=== PATIENT | female | born 1990 | race Caucasian/White ===

== ENCOUNTER 2017-05-25 15:19 | Inpatient (IN) | payer OTHER ==
[~2017-05-25 15:19] MED LIST: IOPAMIDOL (ISOVUE 370) 100 ML BTL IV ONE
--- NOTE | 2017-05-25 15:34 | EDPHY ---
H & P Stated Complaint: KNOWN PERICARDIAL EFFUSION Time Seen by Provider: 05/25/17 15:34 - Personal History LMP (Females 10-55): Now Current Tetanus Diphtheria and Acellular Pertussis (TDAP): Unsure Tetanus Vaccine Date: <10YRS - Medical/Surgical History Other PMH: LUPUS, APPY - Social History Smoking Status: Never smoked Constitutional: Initial Vital Signs Temperature (C) 36.5 C 05/25/17 15:26 Heart Rate 113 H 05/25/17 15:26 Respiratory Rate 18 05/25/17 15:26 Blood Pressure 132/103 H 05/25/17 15:26 O2 Sat (%) 98 05/25/17 15:26 O2 Delivery Mode Room Air Allergies/Adverse Reactions: Sulfa (Sulfonamide Antibiotics) Allergy (Severe, Verified 08/18/11 17:06) Ronan North Syndrome Home Medications: Medication Instructions Recorded Hydroxychloroquine Sulfate mg PO BID 09/09/10 [Plaquenil] Mycophenolate Mofetil [Cellcept] mg PO BID 09/09/10 Prednisone [Sterapred Ds] 0.5 mg PO DAILY 09/09/10 ASPIRIN 05/25/17 Aleve 05/25/17 Medical Decision Making - Diagnostics Imaging Results: Imaging Impressions Chest/Thorax CTA 05/25/17 18:00 Impression: 1. No evidence of thrombopulmonary embolic disease. 2. Large pericardial effusion. Small left pleural effusion and atelectasis in the left lower lobe. Results called and discussed with Dr. Kayec Huizar on May 25, 2017 at 1420 hours. ED Course/Re-evaluation: CHIEF COMPLAINT: Pericardial effusion, dyspnea, chest pain HISTORY OF PRESENT ILLNESS: The patient is a 27 y/o female with a history of lupus who arrives at the referral of cardiology due to shortness of breath and chest pain secondary to large pericardial effusion seen on CT today. She's had an ongoing lupus flare over the last 3-4 months, but over the past few weeks she noticed gradually increasing fatigue, shortness of breath with mild exertion , and pleuritic chest pain. She was evaluated by her shuttle car operator, Dr. Roa, today and had a chest CT performed that revealed a large pericardial effusion. Dr. Roa has reassessed her in the ED after echocardiogram and is taking her directly to the general production laborer to treat pericardial tamponade. REVIEW OF SYSTEMS: A 10 point review of systems was performed and is negative with the exception of the elements mentioned in the history of present illness. PHYSICAL EXAM: HR, BP, O2 Sat, RR. Temp noted General Appearance: Alert, well hydrated, appropriate, and non-toxic appearing. Head: Atraumatic without scalp tenderness or obvious injury Eyes: Pupils equal, round, reactive to light and accommodation, EOMI, no trauma , no injection. Nose: Atraumatic, no rhinorrhea, clear. Throat: Mucus membranes moist. Neck: Supple, nontender, no lymphadenopathy. Respiratory: No retractions, no distress, no wheezes, and no accessory muscle use. Lungs are clear to auscultation bilaterally. Cardiovascular: Regular rate and rhythm. Good capillary refill all extremities. Gastrointestinal: Abdomen is soft, nontender, non-distended, no masses, no rebound, no guarding, no peritoneal signs. Musculoskeletal: Normal active ROM of all extremities, atraumatic. Neurological: Alert, appropriate, and interactive. The patient has non-focal cranial nerves, motor, sensory, and cerebellar exam. Skin: No rashes, good turgor, no nodules on palpation. Past medical history: Lupus Past surgical history: noncontributory Family history: noncontributory Social history: Lives in [place]. Engaged. Nonsmoker. DIAGNOSTICS/PROCEDURES/CRITICAL CARE TIME: Reviewed CT chest from earlier today. Echocardiogram reveals pericardial tamponade per Dr. Roa. DIFFERENTIAL DIAGNOSIS: The differential diagnosis for the patient's chest pain included but was not limited to myocardial ischemia, pulmonary embolus, chest wall pain, pleural inflammation, and pulmonary infectious causes. MEDICAL DECISION MAKING: This is a well-appearing 27 y/o female with a history of lupus who presents with a several-week history of gradually worsening dyspnea, fatigue, and chest pain. Chest CT shows very large pericardial effusion. Dr. Roa assessed patient in the ED during echocardiogram and saw pericardial tamponade, so he is taking her to the cath suite right now for treatment. - Data Points Laboratory Results: Laboratory Results 05/25/17 15:39 05/25/17 15:39 05/25/17 05/25/17 05/25/17 16:45 15:39 15:39 WBC RBC Hgb Hct MCV MCH MCHC RDW Plt Count PT 14.2 SEC SEC (12.0-15.0) INR 1.08 (0.83-1.16) APTT 37.7 SEC SEC (23.0-38.0) Sodium 139 mEq/L mEq/L (134-144) Potassium 4.0 mEq/L mEq/L (3.5-5.2) Chloride 108 mEq/L mEq/L (97-110) Carbon Dioxide 21 mEq/l L mEq/l (22-31) Anion Gap 10 mEq/L mEq/L (8-16) BUN 18 mg/dL mg/dL (7-23) Creatinine 0.8 mg/dL mg/dL (0.6-1.0) POC Creatinine Estimated GFR > 60 Glucose 80 mg/dL mg/dL (70-100) Calcium 8.5 mg/dL mg/dL (8.5-10.4) Total Protein Pending Beta HCG, Qual 05/25/17 05/25/17 05/25/17 15:39 15:39 13:24 WBC 5.54 10^3/uL 10^3/uL (3.80-9.50) RBC 4.59 10^6/uL 10^6/uL (4.18-5.33) Hgb 13.6 g/dL g/dL (12.6-16.3) Hct 40.6 % % (38.0-47.0) MCV 88.5 fL fL (81.5-99.8) MCH 29.6 pg pg (27.9-34.1) MCHC 33.5 g/dL g/dL (32.4-36.7) RDW 15.1 % % (11.5-15.2) Plt Count 285 10^3/uL 10^3/uL (150-400) PT INR APTT Sodium Potassium Chloride Carbon Dioxide Anion Gap BUN Creatinine POC Creatinine 0.9 mg/dL mg/dL (0.6-1.0) Estimated GFR Glucose Calcium Total Protein Beta HCG, Qual NEGATIVE Point of Care Test Results: 05/25/17 13:24 POC Creatinine 0.9 Departure - Departure Disposition: [facility] Inpatient Acute Clinical Impression: Pericardial effusion with cardiac tamponade Condition: Fair Referrals: Terrie Izaguirre PA [Primary Care Provider] - As per Instructions Report Scribed for: Kobi Roca Report Scribed by: Sheron Solares Date of Report: 05/25/17 Time of Report: 16:11
[2017-05-25] MEDS ORDERED: LIDOCAINE 1% 300 MG/30 ML SDV ONE (16:09)
[2017-05-25] MEDS ORDERED: MIDAZOLAM 2 MG/2 ML VIAL ONE ×2 (16:10→17:21)
[2017-05-25] MEDS ORDERED: fentaNYL 100 MCG/2 ML INJ ONE (16:10)
[2017-05-25] MEDS ORDERED: IOPAMIDOL (ISOVUE-370) 150 ML BTL IV ONE (16:10)
[2017-05-25 16:53] LABS: ANION GAP 10 mEq/L (8-16); CALCIUM 8.5 mg/dL (8.5-10.4); CARBON DIOXIDE 21 mEq/l (22-31); CHLORIDE 108 mEq/L (97-110); CREATININE 0.8 mg/dL (0.6-1.0); GLOMERULAR FILTRATION RATE > 60; GLUCOSE 80 mg/dL (70-100); SODIUM 139 mEq/L (134-144)
--- NOTE | 2017-05-25 16:56 | CPEKG ---
Heart Rate: 99 RR Interval: 606 P-R Interval: 172 QRSD Interval: 78 QT Interval: 344 QTC Interval: 442 P [place]: 29 QRS [place]: 33 T Wave [place]: 1 EKG Severity - ABNORMAL ECG - EKG Impression: SINUS RHYTHM EKG Impression: ABNORMAL Q SUGGESTS ANTERIOR INFARCT EKG Impression: BORDERLINE T ABNORMALITIES, INFERIOR LEADS EKG Impression: COMPARED WITH 02/18/2010, INFERIOR T ABNORMALITIES NOW PRESENT, Q-WAVES SEEN IN EKG Impression: V2. CONSIDER PREVIOUS ANTERIOR HI VERSUS LEAD PLACEMENT DIFFERENCE Electronically Signed By: Ines Lange 25-May-2017 19:05:41
[2017-05-25 17:01] LABS: HEMATOCRIT 40.6 % (38.0-47.0); HEMOGLOBIN 13.6 g/dL (12.6-16.3); MEAN CELL HEMOGLOBIN 29.6 pg (27.9-34.1); MEAN CELL HEMOGLOBIN CONCENTR. 33.5 g/dL (32.4-36.7); MEAN CELL VOLUME 88.5 fL (81.5-99.8); RED BLOOD CELL COUNT 4.59 10^6/uL (4.18-5.33); RED CELL DISTRIBUTION WIDTH 15.1 % (11.5-15.2)
[2017-05-25 17:08] LABS: APTT 37.7 SEC (23.0-38.0); INR 1.08 (0.83-1.16); PROTIME(PATIENT) 14.2 SEC (12.0-15.0)
[2017-05-25] MEDS ORDERED: ACETAMINOPHEN 325 MG TAB PO PRN (18:07)
[2017-05-25 18:14] LABS: TOTAL PROTEIN 5.3 g/dL (6.3-8.2)
--- NOTE | 2017-05-25 19:02 | ECHO ---
[email or web address] [address] [address] Main: [phone] Fax: Transthoracic Echocardiogram Name: LUZ LAWLER MR#: [id number] Study Date: 05/25/2017 Study Time: 03:52 PM Date of : 1990 Age: 27 year(s) Height: 172.7 cm (68 in.) Weight: 72.58 kg (160 lb.) BSA: 1.86 m2 Gender: Female Examination: Echo Indication: Eval pericardial effusion Image Quality: Contrast: Requested by: Physician Ed BP: / Heart Rate: Rhythm: Indication: Eval pericardial effusion Procedure Staff Developer Designer: Pearl Alva Physician: Macho Roa Requesting Provider: Conclusions: Low normal left ventricular systolic function. Large pericardial effusion. Evidence suggestive of hemodynamic compromise. Left side pleural effusion. Measurements: Chambers Valvular Assessment AV/MV Valvular Assessment TV/PV Normal Normal Normal Name Value Range Name Value Range Name Value Range Ao Maria C (MM): 3.4 cm (2.2 cm-3.7 TR Vmax: 2.20 mm/s ( - ) cm) TR PGmax: 19 mmHg ( - ) IVSd (2D): 1.1 cm (0.6 cm-1.1 syst. PAP: 24 mmHg ( - ) cm) LVDd (2D): 4.4 cm (3.9 cm-5.3 cm) LVDs (2D): 3.4 cm (2.1 cm-4 cm) LVPWd (2D): 1.1 cm ( - ) LVEF (2D): 47 (>=54 %) Continued Measurements: Chambers Valvular Assessment TV/PV Name Value Name Value LADs: 3.4 cm CVP (est.): 5 mmHg Findings: Left Ventricle: Low normal left ventricular systolic function. EF is 47 %. Patient: LUZ LAWLER Study Date: 05/25/2017 Page 1 of 2 03:52 PM Mitral Valve: The mitral valve is normal in appearance. Trivial mitral valve regurgitation. Aortic Valve: The aortic valve is normal in appearance. Tricuspid Valve: Trivial tricuspid valve regurgitation. The pulmonary artery pressure is normal. Pulmonic Valve: The pulmonic valve is normal in appearance and function. Aorta: Normal size ascending aorta. Pericardium: Large pericardial effusion. Evidence suggestive of hemodynamic compromise. Left side pleural effusion. (No Signature Object) Patient: LUZ LAWLER Study Date: 05/25/2017 Page 2 of 2 03:52 PM [id number]
--- NOTE | 2017-05-25 19:08 | ECHO ---
[email or web address] [address] [address] Main: [phone] Fax: Transthoracic Echocardiogram Name: LUZ LAWLER MR#: [id number] Study Date: 05/25/2017 Study Time: 04:44 PM Date of : 1990 Age: 27 year(s) Height: ( ) Weight: ( ) BSA: Gender: Female Examination: Limited Echo Indication: Tamponade Image Quality: Contrast: Requested by: Kobi Roca BP: / Heart Rate: Rhythm: Tachycardia Indication: Tamponade Procedure Staff Stock Taker: Ivan Alva Physician: Macho Roa Requesting Provider: Conclusions: Large pericardial effusion. Evidence suggestive of hemodynamic compromise. trace residual pericardial effusion post pericardiocentesis. . This is a limited echo during a pericardiocentisis. 700cc of pericardial fluid was removed during the procedure.. Measurements: Chambers Valvular Assessment AV/MV Valvular Assessment TV/PV Normal Normal Normal Name Value Range Name Value Range Name Value Range Continued Measurements: Findings: Left Ventricle: Normal global systolic LV function. Pericardium: Large pericardial effusion. Evidence suggestive of hemodynamic compromise. trace residual pericardial effusion post pericardiocentesis. . Exam Comments: This is a limited echo during a pericardiocentisis. 700cc of pericardial fluid was removed during the procedure.. (No Signature Object) Patient: LUZ LAWLER Study Date: 05/25/2017 Page 1 of 1 04:44 PM [id number]
[2017-05-25] MEDS ORDERED: NAPROXEN SODIUM 220 MG TAB PO PRN (20:39)
[2017-05-25] MEDS ORDERED: KETOROLAC 15 MG/1 ML SDV IVP ONE (22:00)
[2017-05-25] MEDS ORDERED: oxyCODONE IR 5 MG TAB PO PRN (22:01)
[2017-05-25] MEDS: PANTOPRAZOLE SODIUM 40 MG TAB PO SCH (22:12)
[2017-05-25] MEDS: MYCOPHENOLATE MOFETIL 1000 MG PO SCH (22:12)
[2017-05-25] MEDS: HYDROXYCHLOROQUINE SULFATE 200 MG PO SCH (22:13)
--- NOTE | 2017-05-25 22:38 | GCON ---
[f rep st] CONSULTATION CARDIOLOGY PROCEDURE NOTE. DATE OF CONSULTATION: 05/25/2017 PROCEDURE PERFORMED: Pericardiocentesis. INDICATION FOR PROCEDURE: Pericardial tamponade. BRIEF HISTORY: The patient is a pleasant 27-year-old female with a known history of lupus initially diagnosed at the age of 18 who was experiencing a recent lupus flare and has recently spent 10 days t raveling in [place] for work. She presented to her furnace caretaker, Dr. Kayce Huizar at the [facility] with complaints of increasing shortness of breath, dyspnea, and tachycardia. CTA of the chest was ordered which was negative for pulmonary emboli, but demonstrated a large circumferential pericardial effusion. She was presented to [facility] and found to have a large circumferential, approximately 3 cm, pericardial effusion and evidence of pericardia l tamponade. The patient was brought to the cardiac catheterization lab for urgent pericardiocentesis. Prior to onset of procedure patient was consented for pericardiocentesis. PROCEDURE: After appropriate level of sedation was achieved, the patient was prepped and draped in a sterile fashion. The patient initially underwent local anesthesia with lidocaine. A Cook needle wa s then used to advance underneath the costophrenic margin and into the pericardial space. Clear stra w-like fluid was returned in the syringe. Agitated saline under direct echocardiography demonstrated appropriate placement within the pericardium. At that point, dilator was advanced and then exchange d for pericardial catheter over wire. At that point, approximately 750 cc of straw-like clear fluid were removed from the pericardium without complication. Drain was secured in place with continuous s uction to RADHA drain. She tolerated the procedure well. There were no postoperative complications. PLAN: 1. The patient will be transferred to the ICU. 2. Pericardial drain will remain in place. 3. Plan for repeat echocardiogram in the morning. 4. Will increase dose of prednisone to 40 mg once daily. 5. Will remain on all of her outpatient lupus medications. I had discussed the case with Dr. Huizar who recommended that she remain on her medications with the addition of increasing prednisone dosing. /[id number]/MODL
--- NOTE | 2017-05-25 22:44 | GHP ---
[f rep st] HISTORY AND PHYSIC DATE OF ADMISSION: 05/25/2017 INDICATION FOR ADMISSION: Increasing complaints of shortness of breath and dyspnea on exertion, found to be in pericardial tamponade with large circumferential pericardial effusion in the setting of a known history of lupus. HISTORY OF PRESENT ILLNESS: The patient is a pleasant 27-year-old female with a past medical history of lupus diagnosed at the age of 18, who is managed primarily by Dr. Dwain Marroquin at [facility], who was in her usual state of health until the past several weeks when she has had symptoms consistent with a lupus flare. She recently was on a 10-day trip to [facility] where she began to feel increasing shortness of breath, fatigue, and dyspnea on exertion. She was seen by Dr. Kayce Huizar at the [facility] with complaints of increasing shortness of breath and chest discomfort. She was sent for a CTA of the pulmonary arteries with concern for possible pulmonary embolus in the setting of an antiphospholipid antibody syndrome and long international travel. CTA was negative for pulmonary emboli but did note a large pericardial effusion. At that point, the patient was asked to present to [facility] emergency department for further evaluation. I met her in the emergency room, and a stat echo had been ordered even prior to her arrival. Stat echocardiogram demonstrated an approximately 3 cm circumferential pericardial effusion with evidence of pericardial tamponade. The patient was brought urgently to the cardiac catheterization lab and underwent pericardiocentesis for 750 cc approximately of straw-colored fluid. She tolerated the procedure well. There were no postoperative complications. Drain was sutured in place with continuous RADHA drain. Currently, at the time of this dictation, she is being transferred to the ICU, where she is hemodynamically stable. PAST MEDICAL HISTORY: 1. Lupus. 2. History of antiphospholipid antibody syndrome and no prior history of DVT. 3. History of migraines and history of migraines with aura. MEDICATIONS ON ADMISSION: 1. Aleve 220 mg every 3rd day. 2. Hydroxychloroquine 200-mg tablets 1 tablet p.o. b.i.d. 3. Mycophenolate mofetil 500-mg tablets 2 tablets b.i.d. 4. Prednisone 10 mg daily. 5. Cyclobenzaprine 5 mg 1 tablet p.o. 3 times a day as needed. 6. Xanax 0.25 mg 1 tablet by oral route q.12 hours p.r.n. severe anxiety. ALLERGIES: Of note, she has a severe allergy to sulfa, Kong-North syndrome. SOCIAL HISTORY: She is single. She is engaged to be . She is originally from [place]. She is a nonsmoker. She does not drink significant quantities of alcohol. FAMILY HISTORY: Family history of lupus. No family history of coronary artery disease. EXAM: On initial presentation to the ER, blood pressure was 132/103, and she was tachycardic at 113 beats per minute, 98% on room air, temperature 36.5. She is awake, alert, oriented, appropriate, in no apparent distress. LUNGS: Clear to auscultation bilaterally. CARDIAC: S1, S2. Tachycardic, regular. There is no evidence of JVP or carotid bruits. ABDOMEN: Soft, nontender, nondistended. There is no pulsatile mass or abdominal bruits. There is no evidence of cyanosis, clubbing or edema. DATA: ECG demonstrates sinus tachycardia at approximately 100 beats per minute , normal intervals, normal axis. LAB WORK: White blood cell count 5.54, hemoglobin of 13.6, hematocrit of 40.6, platelet count 285. INR 1.08. Sodium 139, potassium 4.0, chloride 108, bicarb 21, BUN 18, creatinine 0.8. Beta hCG negative. Total serum protein 5.3. Echocardiogram demonstrates normal left ventricular systolic function with large circumferential pericardial effusion of approximately 3 cm with evidence of pericardial tamponade. IMPRESSION: 1. Pericardial tamponade. 2. History of lupus. 3. History of antiphospholipid antibody syndrome. PLAN: 1. The patient has undergone pericardiocentesis for approximately 750 cc of straw-like, clear fluid. Cultures, cytologies, and protein are pending. 2. Pericardial drain in place with continuous drain to RADHA drain at this time. 3. Admit to ICU. 4. Increase prednisone to 40 mg daily. Have her remain on her other medications as prescribed by Dr. Huizar. 30 min spent coordinating care /[id number]/MODL MTDD
[2017-05-25] MEDS: TURMERIC COMPLEX 500 MG PO SCH (23:10)
[2017-05-26 05:42] LABS: % IMMATURE GRANULYOCYTES 0.2 % (0.0-1.1); ABSOLUTE IMMATURE GRANULOCYTES 0.02 10^3/uL (0.00-0.10); ADD DIFF? NO; ADD MORPH? NO; ADD SCAN? NO; ATYPICAL LYMPHOCYTE FLAG 30 (0-99); FRAGMENT RBC FLAG 0 (0-99); HEMATOCRIT 39.5 % (38.0-47.0); HEMOGLOBIN 13.3 g/dL (12.6-16.3); LEFT SHIFT FLG 30 (0-99); LIPEMIA HEMOLYSIS FLAG 80 (0-99); MEAN CELL HEMOGLOBIN 29.7 pg (27.9-34.1); MEAN CELL HEMOGLOBIN CONCENTR. 33.7 g/dL (32.4-36.7); MEAN CELL VOLUME 88.2 fL (81.5-99.8); PLATELET CLUMPS FLAG 10 (0-99); PLATELET COUNT 274 10^3/uL (150-400); RED BLOOD CELL COUNT 4.48 10^6/uL (4.18-5.33); RED CELL DISTRIBUTION WIDTH 14.9 % (11.5-15.2)
[2017-05-26 05:50] LABS: ANION GAP 8 mEq/L (8-16); CALCIUM 8.1 mg/dL (8.5-10.4); CARBON DIOXIDE 21 mEq/l (22-31); CHLORIDE 107 mEq/L (97-110); CREATININE 0.9 mg/dL (0.6-1.0); GLOMERULAR FILTRATION RATE > 60; GLUCOSE 92 mg/dL (70-100); POTASSIUM 4.5 mEq/L (3.5-5.2); SODIUM 136 mEq/L (134-144)
[2017-05-26] MEDS ORDERED: IBUPROFEN 200 MG TAB PO ONE (08:43)
[2017-05-26] MEDS: HYDROXYCHLOROQUINE SULFATE 200 MG PO SCH ×2 (08:55→19:36)
[2017-05-26] MEDS: IBUPROFEN 200 MG TAB PO PRN ×3 (08:59→21:36)
[2017-05-26] MEDS: MYCOPHENOLATE MOFETIL 1000 MG PO SCH ×2 (08:59→19:34)
[2017-05-26] MEDS ORDERED: PREDNISONE 15 MG PO SCH (09:00)
[2017-05-26] MEDS: TURMERIC COMPLEX 500 MG PO SCH ×2 (09:01→19:35)
[2017-05-26] MEDS: PANTOPRAZOLE SODIUM 40 MG TAB PO SCH (09:02)
[2017-05-26] MEDS: predniSONE 20 MG TAB PO SCH (10:38)
--- NOTE | 2017-05-26 11:16 | ASMTCASEMG ---
Living Arrangements What is your living Answers: Alone arrangement? Who do you live with? Type Of Residence What kind of residence do Answers: House you live in? Discharge Plan Comments Coordination Status Comments Notes: Patient is a 27yo single female who was admitted for pericardial tamponade and was emergently taken to the cardiac catheterization lab for pericardicentesis. Patient tolerated the procedure well. No therapies have been ordered. Patient will likely d/c independently. She is engaged to be and has her own home in [place]. CM available if d/c needs arise. Date Signed: 05/26/2017 11:15 AM Electronically Signed By:Lizbet Storm LCSW
--- NOTE | 2017-05-26 14:11 | GCON ---
[f rep st] CONSULTATION TITLE COORDINATOR CONSULTATION REASON FOR ADMISSION: Lupus, pericardial tamponade. HISTORY OF PRESENT ILLNESS: The patient is an extremely pleasant 27-year-old, white female with a [facility] medical history of lupus. This was diagnosed at age 18. She also has a history of antiphospholip id antibody and migraines. She presented to the emergency room with complaints of increasing breathl essness. She has recently had her 1st flare of lupus after approximately 9 years. She has been foll owed by Dr. Dwain Marroquin at [facility]. She apparently was on a recent 10-day trip to [facility]. She began having increasing breathlessness and dyspnea upon exertion. Upon retur n, she was seen by her primary care physician, sent for CT angiogram of the chest which revealed no e vidence of pulmonary embolism, but did notice a large pericardial effusion. She was brought to the e mergency room. Stat echo was performed and she was taken urgently to the cardiac catheterization lab for pericardiocentesis. Currently, patient states she feels markedly improved. She does complain o f a headache and some chest pain where the drain site is, but she denies any shortness of breath, cou gh, or production of sputum. She is currently resting comfortably. PAST MEDICAL HISTORY: Significant for lupus, antiphospholipid antibody with no prior history of DVT, and history of migraines. ALLERGIES: No known allergies to medications. SOCIAL HISTORY: No history of tobacco use. Infrequent alcohol use. She is engaged. She has lived in [place] for 9 years, is originally from [place]. FAMILY HISTORY: Significant for lupus. REVIEW OF SYSTEMS: A 10-point review of systems was performed which was negative except for those li sted in the HPI. PHYSICAL EXAM: VITAL SIGNS: Blood pressure is 104/54, pulse 108, respirations 26, temperature is 38 .0, oxygen saturation 92% on room air. GENERAL: She is a well-developed, well-nourished, 27-year-ol d, white female who is resting comfortably in no acute distress. HEENT: Eyes: WALLACE, EOMI. Throat shows no erythema or tonsillar hypertrophy. NECK: Supple. No cervical adenopathy. HEART: Sounds are distant, but regular rate and rhythm. LUNGS: Diminished breath sounds but no wheeze. ABDOMEN: Soft, nontender. Bowel sounds present in all 4 quadrants. EXTREMITIES: No clubbing, cyanosis, or edema. LABORATORIES: White count is 8.7, hemoglobin 13, hematocrit 39, platelet count 274. Sodium 136, pot assium 4.5, chloride 107, CO2 21, BUN 22, creatinine 0.9, glucose is 92, pericardial effusion. White count of 105, RBCs 126. Glucose 85, protein 4.2. Cytology is currently pending. Chest x-ray shows a hint of a left lower lobe infiltrate. CT angiogram of the chest shows atelectasis in the left lower lobe and a large pericardial effusion. IMPRESSION: 1. Lupus with flare. 2. Large pericardial effusion with tamponade secondary to lupus. 3. Respiratory, currently stable. 4. Status post pericardial drain. 5. History of antiphospholipid antibody syndrome. 6. Migraines. RECOMMENDATIONS: 1. Adequate pain control. 2. DVT and PE prophylaxis. 3. Stress ulcer prophylaxis. 4. Continue current home medications. 5. Close cardiovascular monitoring. 6. Follow pericardial output closely. /[id number]/MODL
--- NOTE | 2017-05-26 17:39 | ECHO ---
[email or web address] [address] [address] Main: [phone] Fax: Transthoracic Echocardiogram Name: LUZ LAWLER MR#: [id number] Study Date: 05/26/2017 Study Time: 03:53 PM Date of : 1990 Age: 27 year(s) Height: ( ) Weight: ( ) BSA: Gender: Female Examination: Limited Echo Indication: Eval pericardial effusion post drain removal Image Quality: Contrast: Requested by: Macho Roa BP: 102 mmHg/56 mmHg Heart Rate: Rhythm: Indication: Eval pericardial effusion post drain removal Procedure Staff Master Ship: Pearl Alva Physician: Macho Roa Requesting Provider: Conclusions: Normal global systolic LV function. Normal RV function. Small to moderate pericardial effusion. No echocardiographic evidence of hemodynamic compromise. Left side pleural effusion. Measurements: Chambers Valvular Assessment AV/MV Valvular Assessment TV/PV Normal Normal Normal Name Value Range Name Value Range Name Value Range Continued Measurements: Findings: Left Ventricle: Normal global systolic LV function. Right Ventricle: Normal RV function. Pericardium: Small to moderate pericardial effusion. No echocardiographic evidence of hemodynamic compromise. Left side pleural effusion. (No Signature Object) Patient: LUZ LAWLER Study Date: 05/26/2017 Page 1 of 1 03:53 PM [id number]
--- NOTE | 2017-05-26 17:41 | ECHO ---
[email or web address] [place] [id number] Main: [phone] Fax: Transthoracic Echocardiogram Name: LUZ LAWLER MR#: [id number] Study Date: 05/26/2017 Study Time: 10:24 AM Date of : 1990 Age: 27 year(s) Height: ( ) Weight: ( ) BSA: Gender: Female Examination: Limited Echo Indication: Eval pericardial effusion Image Quality: Contrast: Requested by: Macho Roa BP: / Heart Rate: Rhythm: Indication: Eval pericardial effusion Procedure Staff Tying Machine Operator: Pearl Alva Physician: Macho Roa Requesting Provider: Measurements: Chambers Valvular Assessment AV/MV Valvular Assessment TV/PV Normal Normal Normal Name Value Range Name Value Range Name Value Range Continued Measurements: Findings: Left Ventricle: Normal global systolic LV function. Right Ventricle: Normal RV function. Pericardium: Small to moderate pericardial effusion. No echocardiographic evidence of hemodynamic compromise. Left side pleural effusion. (No Signature Object) Patient: LUZ LAWLER Study Date: 05/26/2017 Page 1 of 1 10:24 AM [id number]
--- NOTE | 2017-05-26 19:10 | PDCARPN ---
Cardiology Progress Note Chief Complaint: sob Assessment/Plan: Assessment: 1. Pericardial effusion with tamponade. Sp pericardiocentesis for 750 cc 2. Left Pleural effusion 3. Lupus flare Plan: -reviewed medical therapy with her Rheumatolotist, Dr. Montez -Continue current medications -monitor overngiht -repeat echo in AM. If effusion increases, will consider pericardial window -CXR Pa and Lat to assess pleural effusion 05/26/17 19:08 Subjective: Yaima is feeling better today. Notices some resprophasic pain. Pericardial drain pulled at noon. Post echo demonstrates slight increase in effusion without tamponade. She does remain in Sinus Tach at 105-110. BP is stable. No new complaints. Reviewed/Discussed With: family, multidisciplinary team Objective: Vital Signs (8 Hrs) Temp Pulse Resp BP Pulse Ox 05/26/17 16:00 36.9 C 101 H 24 H 98/65 L 95 05/26/17 11:37 37.3 C 104 H 23 H 102/56 L Intake/Output (24 Hrs) 05/25/17 05/26/17 05/27/17 05:59 05:59 05:59 Intake Total 500 1000 Output Total 77 195 Balance 423 805 Intake: Oral (ml) 500 1000 Output: RADHA Drain Output (ml) 77 #1 Chest Jack Birch 77 Pericardial Drain Output 195 (ml) Chest 195 Other: Weight 72.575 kg 72.575 kg Number of Voids Toilet 1 2 Result Diagrams: 05/26/17 05:26 05/26/17 05:26 - Physical Exam Constitutional: WDWN Cardiovascular: regular rate and rhythm (tachy at 105) Respiratory: clear to auscultate bilat Musculoskeletal: no muscular tenderness Neurologic: AAOx3, CN II-XII grossly intact Psychiatric: cooperative ICD10 Worksheet Patient Problems: Problems Problem Status Onset Pericardial effusion with cardiac tamponade Acute
[2017-05-26] MEDS ORDERED: ALPRAZolam 0.25 MG TAB PO PRN (21:25)
[2017-05-27] MEDS: IBUPROFEN 200 MG TAB PO PRN (06:00)
[2017-05-27 06:45] LABS: % IMMATURE GRANULYOCYTES 0.7 % (0.0-1.1); ABSOLUTE IMMATURE GRANULOCYTES 0.07 10^3/uL (0.00-0.10); ADD DIFF? NO; ADD MORPH? NO; ADD SCAN? NO; ATYPICAL LYMPHOCYTE FLAG 0 (0-99); FRAGMENT RBC FLAG 20 (0-99); HEMATOCRIT 37.1 % (38.0-47.0); HEMOGLOBIN 12.4 g/dL (12.6-16.3); LEFT SHIFT FLG 10 (0-99); LIPEMIA HEMOLYSIS FLAG 80 (0-99); MEAN CELL HEMOGLOBIN 29.7 pg (27.9-34.1); MEAN CELL HEMOGLOBIN CONCENTR. 33.4 g/dL (32.4-36.7); MEAN CELL VOLUME 88.8 fL (81.5-99.8); MEAN PLATELET VOLUME 10.4 fL (8.7-11.7); PLATELET CLUMPS FLAG 0 (0-99); PLATELET COUNT 285 10^3/uL (150-400); RED BLOOD CELL COUNT 4.18 10^6/uL (4.18-5.33); RED CELL DISTRIBUTION WIDTH 15.1 % (11.5-15.2)
[2017-05-27 06:59] LABS: ANION GAP 10 mEq/L (8-16); CALCIUM 8.4 mg/dL (8.5-10.4); CARBON DIOXIDE 22 mEq/l (22-31); CHLORIDE 108 mEq/L (97-110); CREATININE 0.9 mg/dL (0.6-1.0); GLOMERULAR FILTRATION RATE > 60; GLUCOSE 94 mg/dL (70-100); POTASSIUM 4.1 mEq/L (3.5-5.2); SODIUM 140 mEq/L (134-144)
--- NOTE | 2017-05-27 10:40 | PDINTPN ---
[employer] Progress Note Assessment/Plan: Assessment: * Lupus * Pericardial effusion with tamponade. Drain pulled yesterday, however there is reaccumulation of fluid. Query pericardial window * Small pleural effusion * Pain-well tolerated Plan: Will discuss case with Dr. Roa Continue pain medications NPO for now Subjective: Resting comfortably. Pain is well tolerated. Denies any breathlessness. Currently NPO Objective: Vital Signs Temp Pulse Resp BP Pulse Ox 37.1 C 96 19 109/69 97 05/27/17 08:00 05/27/17 08:00 05/27/17 08:00 05/27/17 08:00 05/27/17 08:00 Laboratory Results 05/27/17 06:25 05/27/17 06:25 05/26/17 05/27/17 05/28/17 05:59 05:59 05:59 Intake Total 500 1750 Output Total 77 195 Balance 423 1555 PT 14.2 SEC (12.0-15.0) 05/25/17 15:39 INR 1.08 (0.83-1.16) 05/25/17 15:39 Chest [id number] by myself. Lungs are clear. There is left-sided pleural effusion. - Time Spent With Patient Time Spent With Patient: 25 min of time spent with patient, more than half spent with counseling or coordination of care Physical Exam - Physical Exam General Appearance: alert, no apparent distress EENT: PERRL/EOMI, normal ENT inspection, pharynx normal, TMs normal Neck: non-tender, full range of motion, supple, normal inspection Respiratory: crackles (Few left base), No respiratory distress, No accessory muscle use Cardiac/Chest: normal peripheral pulses, regular rate, rhythm Abdomen: normal bowel sounds, non-tender, soft Pelvic Exam: deferred Rectal: deferred Skin: normal color, warm/dry Extremities: normal range of motion Neuro/Psych: no motor/sensory deficits, alert, normal mood/affect, oriented x 3 ICD10 Worksheet Patient Problems: Problems Problem Status Onset Pericardial effusion with cardiac tamponade Acute
--- NOTE | 2017-05-27 12:12 | PDCARPN ---
Cardiology Progress Note Assessment/Plan: Assessment: 1. Pericardial effusion with tamponade. Sp pericardiocentesis for 750 cc 2. Left Pleural effusion 3. Lupus flare Plan: -reviewed medical therapy with her Rheumatolotist, Dr. Montez -Continue current medications -Give prednisone now -Keep NPO. -Request consultation with Dr. Garcia for pericardial window and drain of left pleural space -30 min spent with patient and coordinating care 05/27/17 12:11 Subjective: Dilip is feeling well this AM. No new complaints. She remains in NSR to sinus tach with HR range from 98-110 bpm. Note echo this am demontrates increasing pericaridal effusion and pleural effusion. Reviewed/Discussed With: family, multidisciplinary team Objective: Vital Signs (8 Hrs) Temp Pulse Resp BP Pulse Ox 05/27/17 11:48 36.9 C 106 H 25 H 116/76 98 05/27/17 08:00 37.1 C 96 19 109/69 97 05/27/17 07:41 37.2 C 96 24 H 109/69 94 05/27/17 06:00 36.9 C 93 21 H 115/67 96 Intake/Output (24 Hrs) 05/26/17 05/27/17 05/28/17 05:59 05:59 05:59 Intake Total 500 1750 Output Total 77 195 Balance 423 1555 Intake: Oral (ml) 500 1750 Output: RADHA Drain Output (ml) 77 #1 Chest Jack Birch 77 Pericardial Drain Output 195 (ml) Chest 195 Other: Weight 72.575 kg 72.575 kg Number of Voids Toilet 1 2 Number of Stools Toilet 0 Result Diagrams: 05/27/17 06:25 05/27/17 06:25 - Physical Exam Constitutional: no apparent distress Neurologic: AAOx3, CN II-XII grossly intact Psychiatric: cooperative, interactive ICD10 Worksheet Patient Problems: Problems Problem Status Onset Pericardial effusion with cardiac tamponade Acute
[2017-05-27] MEDS ORDERED: methylPREDNISolone SOD SUCC 40 MG/ML VIAL IVP ONE (12:30)
[2017-05-27] MEDS: HYDROXYCHLOROQUINE SULFATE 200 MG PO SCH ×2 (12:37→20:07)
[2017-05-27] MEDS: TURMERIC COMPLEX 500 MG PO SCH ×2 (12:37→20:06)
[2017-05-27] MEDS: MYCOPHENOLATE MOFETIL 1000 MG PO SCH ×2 (12:37→20:08)
[2017-05-27] MEDS: PANTOPRAZOLE SODIUM 40 MG TAB PO SCH (12:37)
[2017-05-27] MEDS: predniSONE 20 MG TAB PO SCH (12:38)
[2017-05-27] MEDS ORDERED: MIDAZOLAM 2 MG/2 ML VIAL IVP ONE (13:03)
--- NOTE | 2017-05-27 13:05 | PDANEPAE ---
ANE History of Present Illness L VATS for pericardial window ANE Past Medical History - Pulmonary History Hx Oxygen in Use at Home: No Hx Sleep Apnea: No Sleep Apnea Screening Result - Last Documented: Negative - Endocrine History Hx Diabetes: No Endocrine History Comment: SLE - Other Health History Other Health History: anti phospholipid antibody - Chronic Pain History Chronic Pain: Yes ANE Review of Systems Review of Systems: - Exercise capacity Exercise capacity: >=4 METS ANE Patient History - Allergies Allergies/Adverse Reactions: Sulfa (Sulfonamide Antibiotics) Allergy (Severe, Verified 08/18/11 17:06) Ronan [place] Syndrome - Home Medications Home medications: home medication list seen and reviewed Home Medications: Cyclobenzaprine [Flexeril 10 MG (*)] 10 mg PO Q8H PRN 05/25/17 [Last Taken Unknown] Hydroxychloroquine Sulfate [Plaquenil 200 mg (*)] 200 mg PO BID 05/25/17 [Last Taken 05/25/17 10:00] Mycophenolate Mofetil 1,000 mg PO BID 05/25/17 [Last Taken 05/25/17 10:00] Naproxen Sodium [Aleve 220 MG (*)] 220 mg PO BID 05/25/17 [Last Taken 05/25/17 10:00] predniSONE 15 mg PO AD 05/25/17 [Last Taken 05/24/17] - NPO status NPO Since - Liquids (Date): 04/26/17 NPO Since - Liquids (Time): 00:00 NPO Since - Solids (Date): 05/26/17 NPO Since - Solids (Time): 00:00 - Smoking Hx Smoking Status: Never smoked ANE Labs/Vital Signs - Labs Result Diagrams: 05/27/17 06:25 05/27/17 06:25 - Vital Signs Blood Pressure: 116/76 Heart Rate: 109 Respiratory Rate: 22 O2 Sat (%): 94 Height: 172.72 cm Weight: 72.575 kg ANE Physical Exam - Airway Mallampati Score: Class 1 Mouth exam: small mouth opening (small chin) - Pulmonary Pulmonary: no respiratory distress - Cardiovascular Cardiovascular: regular rate and rhythym - ASA Status ASA Status: II ANE Anesthesia Plan Anesthesia Plan: general endotracheal anesthesia Specialized Airway: double lumen tube
[2017-05-27] MEDS ORDERED: REMIFENTANIL HCL 1 MG VIAL ONE (13:15)
[2017-05-27] MEDS ORDERED: fentaNYL 100 MCG/2 ML INJ ONE ×3 (13:16→15:32)
[2017-05-27] MEDS ORDERED: ceFAZolin 2 GM/SWFI 20 ML SYR IVP ONE (13:16)
[2017-05-27] MEDS ORDERED: PROPOFOL/EMULSION 500 MG/50 ML BOTTLE IV ONE ×2 (13:16→14:24)
[2017-05-27] MEDS ORDERED: DEXAMETHASONE 4 MG/ML VIAL ONE (13:17)
[2017-05-27] MEDS ORDERED: ONDANSETRON 4 MG/2 ML VIAL ONE (13:17)
[2017-05-27] MEDS ORDERED: LIDOCAINE 2% 100 MG/5 ML SYR ONE (13:18)
[2017-05-27] MEDS ORDERED: LIDOCAINE 2% JELLY 5 ML TUBE ONE (13:18)
[2017-05-27] MEDS ORDERED: ceFAZolin 2 GM/DEXTROSE 100 ML IV ONE (13:30)
[2017-05-27] MEDS ORDERED: PHENYLEPHRINE HCL 100 MCG/ML SYR ONE ×3 (13:41→14:05)
[2017-05-27] MEDS ORDERED: BUPIVACAINE 0.25% 30 ML SDV ONE (13:53)
[2017-05-27] MEDS ORDERED: VASOPRESSIN 20 UNIT/ML VIAL ONE (14:22)
[2017-05-27] MEDS ORDERED: KETOROLAC 30 MG/1 ML SDV ONE (14:36)
[2017-05-27] MEDS ORDERED: ALBUTEROL 3 ML DEYVIAL IH PRN (15:07)
[2017-05-27] MEDS ORDERED: LABETALOL HCL 5 MG/ML 20 ML MDV IVP PRN (15:07)
[2017-05-27] MEDS ORDERED: PROMETHAZINE HCL 25 MG/ML INJ IVP PRN ×2 (15:07→17:08)
[2017-05-27] MEDS ORDERED: MEPERIDINE 25 MG/ML SYR IVP PRN (15:07)
[2017-05-27] MEDS ORDERED: DEXAMETHASONE 4 MG/ML VIAL IVP PRN (15:07)
[2017-05-27] MEDS ORDERED: METOCLOPRAMIDE 10 MG/2 ML VIAL IVP PRN (15:07)
[2017-05-27] MEDS ORDERED: HYDROCODONE/APAP 5/325 TAB PO PRN (15:07)
[2017-05-27] MEDS ORDERED: ONDANSETRON 4 MG/2 ML VIAL IVP PRN (15:07)
[2017-05-27] MEDS ORDERED: NALOXONE HCL 0.4 MG/ML INJ IVP PRN (15:07)
[2017-05-27] MEDS ORDERED: LR 500 ML IV PRN (15:07)
[2017-05-27] MEDS ORDERED: ACETAMINOPHEN 500 MG TAB PO PRN (15:07)
[2017-05-27] MEDS ORDERED: PHENYLEPHRINE HCL 100 MCG/ML SYR IVP PRN (15:07)
[2017-05-27] MEDS ORDERED: OXYCODONE/APAP 5/325 TAB PO PRN (15:07)
--- NOTE | 2017-05-27 15:09 | POSTANESTH ---
Post Anesthetic Evaluation Cardiovascular Status: Normal, Stable Respiratory Status: Normal, Stable Level of Consciousness/Mental Status: Can Participate in Eval Pain Control: Adequate, Prn Tx Ordered Nausea/Vomiting Control: Adequate, Prn Tx Ordered Complications Possibly Related to Anesthesia: None Noted
[2017-05-27] MEDS: fentaNYL 100 MCG/2 ML INJ IVP PRN ×4 (15:12→15:51)
--- NOTE | 2017-05-27 15:21 | ECHO ---
[email or web address] [address] [address] Main: [phone] Fax: Transthoracic Echocardiogram Name: LUZ LAWLER MR#: [id number] Study Date: 05/27/2017 Study Time: 08:00 AM Date of : 1990 Age: 27 year(s) Height: ( ) Weight: ( ) BSA: Gender: Female Examination: Limited Echo Indication: re-evaluate pericardial effusion; S/P pericardiocentesi Image Quality: Adequate Contrast: Requested by: Macho Roa BP: 109 mmHg/69 mmHg Heart Rate: Rhythm: Indication: re-evaluate pericardial effusion; S/P pericardiocentesi Procedure Staff Pharmacovigilance Specialist: Radha Alva Physician: Macho Roa Requesting Provider: Conclusions: Normal global systolic LV function. Normal RV function. Moderate sized pericardial effusion noted around RV free wall; Large size pericardial effusion noted around LV. Pleural effusion noted.. Measurements: Chambers Valvular Assessment AV/MV Valvular Assessment TV/PV Normal Normal Normal Name Value Range Name Value Range Name Value Range Continued Measurements: Additional Vessels Name Value Inferior Vena Cava: 2.1 cm Findings: Left Ventricle: Normal global systolic LV function. Right Ventricle: Normal RV function. Pericardium: RA compression is present during diastole. Early signs of tamponade. Recommend pericardial window. . Exam Comments: Moderate sized pericardial effusion noted around RV free wall; Large size pericardial effusion noted Patient: LUZ LAWLER Study Date: 05/27/2017 Page 1 of 2 08:00 AM around LV. Pleural effusion noted.. (No Signature Object) Patient: LUZ LAWLER Study Date: 05/27/2017 Page 2 of 2 08:00 AM [id number]
[2017-05-27] MEDS: ONDANSETRON 4 MG/2 ML VIAL IVP PRN (17:19)
[2017-05-27] MEDS: KETOROLAC 30 MG/1 ML SDV IVP SCH ×2 (17:19→23:53)
--- NOTE | 2017-05-27 19:01 | GOP ---
[f rep st] OPERATIVE REPORT DATE OF OPERATION: 05/27/2017 SURGEON: Gabe Garcia DO ANESTHESIOLOGIST: Jian. PREOPERATIVE DIAGNOSIS: Recurrent pericardial effusion secondary to systemic lupus erythematosus. POSTOPERATIVE DIAGNOSIS: Recurrent pericardial effusion secondary to systemic lupus erythematosus. PROCEDURE PERFORMED: Left thoracoscopic pericardial window with drainage of pericardial and pleural fluid. FINDINGS: DESCRIPTION OF PROCEDURE: Patient was brought to the operating room after being consented for a thor acoscopic drainage of her pericardial fluid. She was placed in lateral decubitus position with a pepe ble-lumen endotracheal tube. Three portals were placed in the left chest. With the lung collapsed, the pericardium was identified and appeared to be quite erythematous and thickened. We stayed approx imately 4 cm anterior to the phrenic nerve, and after dissecting the fat off the pericardium in that area, we opened it. The pericardium, itself, was probably 5 mm thick, quite indurated, and very vasc ular. We then used a Bovie to open a 4 cm rent. Because of its vascularity and concern about cardia c herniation, we did not take pericardial tissue for biopsy. She had adequate cells for cytology sen t, and it was well known as a likely complication of her lupus. A single Alex drain was placed. Th e wounds were closed. 0.25% Marcaine with epinephrine was used to infiltrate the intercostal spaces. A Pleur-evac was connected. Patient was returned to the recovery room in stable condition. /[id number]/MODL
[2017-05-27] MEDS: oxyCODONE IR 5 MG TAB PO PRN ×3 (19:20→23:53)
[2017-05-27] MEDS ORDERED: ceFAZolin 2 GM/DEXTROSE 100 ML IV SCH (22:00)
[2017-05-27] MEDS: ceFAZolin 2 GM/SWFI 2 GM/20 ML SYR IVP SCH (22:05)
[2017-05-27] MEDS: HYDROCODONE/APAP 5/325 TAB PO PRN (22:06)
--- NOTE | 2017-05-27 23:33 | GCON ---
[f rep st] CONSULTATION REFERRING PHYSICIAN: Macho Roa MD REASON FOR CONSULTATION: Lupus. HISTORY OF PRESENT ILLNESS: The patient is a 27-year-old female with past medical history of systemi c lupus since age 18. She had been in her usual state of health until the last several months. In t he last several months, she has had progressive problems with joint pain, fatigue, and most recently, some shortness of breath. In the outpatient setting, she was started on corticosteroids. Despite t he use of corticosteroids anywhere between 5 mg and 20 mg, her lupus symptoms persisted. When she wa s seen in the outpatient clinic several days prior to hospital admission, she was noted to have a tac hycardia and some shortness of breath with minimal activity. She was referred for a CT angiogram. O n the CT imaging study, it was noted that she had a very large pericardial effusion, small pleural ef fusions, but no pulmonary emboli. She was subsequently referred to the hospital for further evaluati on and large pericardial effusion. Echocardiogram showed evidence of tamponade. Because of this, milind callaway was admitted for pericardiocentesis. Approximately 750 cc of straw-colored fluid was removed. In the subsequent 24 hours, she had recurrent fluid accumulation. Because of this, she underwent a jaya cardial window. She has been on 40 mg per day over the last week. With the increase in this cortico steroid dose, her joint pain has definitely improved. Presently she is feeling okay with the excepti on of pain related to the placement of the RADHA drains. PAST MEDICAL HISTORY: 1. Systemic lupus treated with hydroxychloroquine, prednisone, and mycophenolate. 2. History of antiphospholipid antibodies but no prior thrombotic episode. 3. Migraines. 4. Appendicitis with appendectomy. MEDICATIONS PRIOR TO ADMISSION: Aleve, hydroxychloroquine 200 mg twice a day, mycophenolate 1000 mg twice a day, prednisone 5 mg daily, Xanax as needed, cyclobenzaprine as needed. MEDICATIONS SINCE HOSPITALIZATION: Solu-Medrol 40 mg daily. ALLERGIES: Sulfa. SOCIAL HISTORY: She is engaged to be this summer. Originally from [place]. Nonsmoker. N o significant alcohol intake, although she does drink some alcohol. FAMILY HISTORY: A cousin with lupus. Also family history of Behcet disease in her brother. Family history of scleroderma. REVIEW OF SYSTEMS: Comprehensive review of systems performed. Pertinent for fatigue, shortness of b reath, and chest pain. PHYSICAL EXAMINATION: VITAL SIGNS: Blood pressure 106/67, heart rate 103, respiratory rate of 16. O2 saturation 98%. Temperature 36.9. GENERAL: She appears comfortable lying in bed until she moves, when she has pain related to her drai ns. HEENT: Conjunctivae are clear. No specific nasal or oral lesions seen. NECK: Supple with no lymphadenopathy. CHEST: Breathing is limited due to pain from the chest tube. Normal sinus rhythm. EXTREMITIES: No edema. SKIN: No significant rashes. No alopecia. MUSCULOSKELETAL: No joint swelling or tenderness presently. NEUROLOGIC: Nonfocal. LABORATORY STUDIES: Presently white blood cell count of 10.2, hemoglobin 12.4, platelet count 285. Chemistry notable for creatinine of 0.9, total protein of 5.3. Pericardial fluid showed white blood cells 105, with red blood cells 126, lymphocyte predominant fluid. Cultures so far have been negativ e. ASSESSMENT: 1. Systemic lupus with cardiac tamponade due to large pericardial effusion. At this time, she has h ad a pericardial window placed. This should help her in the short term to help control the recurrent fluid accumulation. My recommendation is to increase Solu-Medrol to 60 mg daily. Upon discharge, s he can be switched over to oral prednisone 60 mg per day. As an outpatient, she will increase her my cophenolate from 1000 mg twice a day to 1500 mg twice a day. She should continue with the use of hyd roxychloroquine. She may wish to use ibuprofen also to help obtain some pain control, and this may a lso help some with decreasing some of the pleural effusion and pericardial effusion. 2. History of antiphospholipid antibodies. She has antiphospholipid antibodies but has never had an y clinical event related to this. There is also family history of this condition. As an outpatient, I may request that she have a hematology consultation. /[id number]/MODL
[2017-05-28] MEDS: ceFAZolin 2 GM/SWFI 2 GM/20 ML SYR IVP SCH (05:56)
[2017-05-28] MEDS: KETOROLAC 30 MG/1 ML SDV IVP SCH ×2 (05:56→11:53)
[2017-05-28] MEDS: oxyCODONE IR 5 MG TAB PO PRN ×3 (06:05→16:03)
[2017-05-28] MEDS: ONDANSETRON 4 MG/2 ML VIAL IVP PRN ×2 (06:05→11:59)
--- NOTE | 2017-05-28 06:15 | SOAPPROG ---
SOAP Progress Note Assessment/Plan: POD #1: Left thoracoscopic pericardial window with drainage of pericardial/ pleural fluid and chest tube placement secondary to SLE - Tube with 45 cc over 12 hours - will remove later today Subjective: Denies SOB/pain. Objective: Vital Signs Temp Pulse Resp BP Pulse Ox 36.4 C 68 15 101/59 L 95 05/28/17 04:00 05/28/17 04:00 05/28/17 04:00 05/28/17 04:00 05/28/17 04:00 Laboratory Results 05/27/17 06:25 05/27/17 06:25 05/27/17 05/28/17 05/29/17 05:59 05:59 05:59 Intake Total 1750 1260 Output Total 195 160 Balance 1555 1100 PT 14.2 SEC (12.0-15.0) 05/25/17 15:39 INR 1.08 (0.83-1.16) 05/25/17 15:39 Physical Exam - Physical Exam General Appearance: WD/WN, alert, no apparent distress Respiratory: No respiratory distress Cardiac/Chest: regular rate, rhythm ICD10 Worksheet Patient Problems: Problems Problem Status Onset Pericardial effusion with cardiac tamponade Acute S/P pericardial surgery Acute ~05/27/17
[2017-05-28 06:56] LABS: HEMATOCRIT 36.5 % (38.0-47.0); HEMOGLOBIN 12.4 g/dL (12.6-16.3)
[2017-05-28 07:14] LABS: ANION GAP 10 mEq/L (8-16); CALCIUM 8.3 mg/dL (8.5-10.4); CARBON DIOXIDE 21 mEq/l (22-31); CHLORIDE 108 mEq/L (97-110); GLOMERULAR FILTRATION RATE > 60; GLUCOSE 108 mg/dL (70-100); SODIUM 139 mEq/L (134-144)
[2017-05-28] MEDS ORDERED: methylPREDNISolone SOD SUCC 40 MG/ML VIAL IVP SCH (09:00)
[2017-05-28] MEDS: HYDROCODONE/APAP 5/325 TAB PO PRN (09:20)
[2017-05-28] MEDS: HYDROXYCHLOROQUINE SULFATE 200 MG PO SCH (09:45)
[2017-05-28] MEDS: TURMERIC COMPLEX 500 MG PO SCH (09:46)
[2017-05-28] MEDS: MYCOPHENOLATE MOFETIL 1000 MG PO SCH (09:47)
[2017-05-28] MEDS: PANTOPRAZOLE SODIUM 40 MG TAB PO SCH (09:49)
[2017-05-28 10:26] VITALS: O2SAT 96
[2017-05-28 11:01] VITALS: BP 105/67; PULSE 77; RESP 11; TEMP 97.1
[2017-05-28] MEDS ORDERED: LACTULOSE 20 GM/30 ML UDCUP PO PRN (11:16)
[2017-05-28] MEDS ORDERED: MAGNESIUM HYDROXIDE 30 ML UDCUP PO PRN (11:16)
[2017-05-28] MEDS ORDERED: BISACODYL 10 MG SUPP PR PRN (11:16)
[2017-05-28] MEDS ORDERED: POLYETHYLENE GLYCOL 3350 17 GM PKT PO PRN (11:16)
[2017-05-28] MEDS ORDERED: SENNOSIDES/DOCUSATE SODIUM TAB PO SCH (11:30)
--- NOTE | 2017-05-28 13:44 | PDCARPN ---
Cardiology Progress Note Assessment/Plan: Assessment: 1. Pericardial effusion with tamponade. Sp pericardiocentesis for 750 cc 2. sp pericardial window on May 27, 2017 3. Left Pleural effusion 4. Lupus flare Plan: -reviewed medical therapy with her Rheumatolotist, Dr. Montez -discharge on Cellcept 1500 mg twice daily -discharge on Prednisone 60 mg daily -continue Hydroxychloroquine 200 mg twice daily -Continue Aleve 220 mg twice daily -Follow up with me on Jun at 4 PM 05/28/17 13:44 Subjective: Yaima is feeling well today. She underwent pericardial window yesterday as well as drain of the left pleural space. Drain removed earlier today after <45 cc in 12 hours. She denies complaints of chest pain or sob. HR is now in the 60-70's ( had been consistently around 100 bpm prior). Appreciate input from Dr. Montez of Rheumatology Reviewed/Discussed With: family, hospitalist, multidisciplinary team Objective: Vital Signs (8 Hrs) Temp Pulse Resp BP Pulse Ox 05/28/17 10:58 36.2 C 77 11 L 105/67 96 05/28/17 10:26 96 05/28/17 07:40 36.7 C 68 18 99/56 L 98 Intake/Output (24 Hrs) 05/27/17 05/28/17 05/29/17 05:59 05:59 05:59 Intake Total 1750 1260 Output Total 195 160 Balance 1555 1100 Intake: Oral (ml) 1750 270 IV Intake (ml) 990 Output: Chest Tube Output (ml) 45 Location 1 28 Fr Left 45 Pleural Estimated Blood Loss (ml) 25 RADHA Drain Output (ml) 90 #1 Chest Jack Birch 90 Pericardial Drain Output 195 (ml) Chest 195 Other: Weight 72.575 kg 72.575 kg Number of Voids Toilet 2 1 1 Number of Stools Toilet 0 Result Diagrams: 05/28/17 06:50 05/28/17 06:50 - Physical Exam Constitutional: WDWN Eyes: PERRL Cardiovascular: regular rate and rhythm Neurologic: AAOx3, CN II-XII grossly intact Psychiatric: cooperative, interactive ICD10 Worksheet Patient Problems: Problems Problem Status Onset Pericardial effusion with cardiac tamponade Acute S/P pericardial surgery Acute ~05/27/17
--- NOTE | 2017-05-28 18:01 | ASDISCHSUM ---
Discharge Information Plan Status:Home with No Needs Medically Cleared to Leave: Discharge Date:05/28/2017 04:11 PM CM D/C Disposition:Home, Routine, Self-Care ADT D/C Disposition:Home, Routine, Self-Care Projected Discharge Date:05/28/2017 04:11 PM Transportation at D/C: Discharge Delay Reason: Follow-Up Date:05/28/2017 04:11 PM Discharge Slot: Final Diagnosis: Placement Information Patient Contact Information Contact Name:FANY Relationship:Mother Address:[address] City:[place] Alternate Phone: [facility] Code:[place] [address] Email: Financial Information Financial Class:HMO and PPO Plans Primary Plan Desc:[employer] PPO POS HMO SIG ADM Primary Plan Number:[id number] Secondary Plan Desc: Secondary Plan Number: Assessment Information [facility] Initial CM Assessment Living Arrangements What is your living Answers: Alone arrangement? Who do you live with? Type Of Residence What kind of residence do Answers: House you live in? Discharge Plan Comments Coordination Status Comments Notes: Patient is a 27yo single female who was admitted for pericardial tamponade and was emergently taken to the cardiac catheterization lab for pericardicentesis. Patient tolerated the procedure well. No therapies have been ordered. Patient will likely d/c independently. She is engaged to be and has her own home in [place]. CM available if d/c needs arise. Date Signed: 05/26/2017 11:15 AM Electronically Signed By:Lizbet Storm LCSW Intervention Information
[2017-05-28] MEDS ORDERED: MYCOPHENOLATE MOFETIL 250 MG CAP PO SCH (21:00)
--- NOTE | 2017-05-28 21:06 | GDS ---
[f rep st] DISCHARGE SUMMARY INDICATION FOR ADMISSION: Cardiac tamponade. DIAGNOSES DURING HOSPITALIZATION: 1. Cardiac tamponade with complaints of shortness of breath, dyspnea and tachycardia. 2. Large circumferential pericardial effusion. 3. Left pleural effusion. 4. Lupus flare. HISTORY OF PRESENT ILLNESS: The patient is a pleasant 27-year-old female with a known history of lupus diagnosed at the age of 20, who is closely followed by her industry consultant, Dr. Dwain Marroquin. She had just recently returned from a 10 -day trip in [facility]. She presented to Dr. Kayce Huizar, who was the covering industry consultant for Dr. Marroquin, with complaints of increasing shortness of breath, dyspnea. Given her history of lupus as well as antiphospholipid anti syndrome, coupled with long plane ride internationally, concern was for pulmonary emboli. She underwent a CT angiogram of the pulmonary arteries with no evidence of pulmonary embolus. CT did note that there is a large pericardial effusion. After pericardial effusion was identified, Dr. Huizar contacted me at which time patient was admitted to the emergency department where we were waiting with stat echocardiography which demonstrated a large approximately 3 cm circumferential pericardial effusion with evidence of both right atrial and right ventricular collapse, consistent with tamponade. She was tachycardic with a heart rate of between 105 and 110 beats per minute and in shortness of breath with any ambulation. The patient was brought urgently to the cardiac catheterization lab after obtaining appropriate laboratory work including CBC, comprehensive metabolic panel, and beta HCG which was negative. She underwent pericardiocentesis without complication with drainage of approximately 750 cc of straw-colored clear fluid. This was sent for culture, cytology, cell and protein count. She tolerated the procedure well. The drain was left in place and she was brought to the step-down unit in the intensive care unit where she was monitored overnight. She did well without any complications. The following morning, repeat echo demonstrated slight increase in the effusion. There was no evidence of tamponade at that time. The drain was removed. A subsequent echocardiogram was performed later that afternoon, demonstrating increased effusion. She was kept overnight for further monitoring and with again increased effusion on 3rd study and beginning evidence of return of tamponade, she was consulted by CT surgery and underwent successful pericardial window for approximately an additional 400 cc of pericardial fluid drainage. Left pleural effusion was also drained at that time. She tolerated the surgery well. This morning she was doing well without complaint. Her resting heart rates had decreased into the 60s and mid-70s. After 12 hours of drainage, there was no greater than 45 cc of drainage. Alex drain was removed without complication. She was doing well and stable for time of discharge. She was also consulted on by Dr. Dwain Marroquin of Rheumatology during her hospitalization who increased her CellCept to 1500 mg p.o. b.i.d. and increased prednisone dosing to 60 mg daily. At the time of discharge, she was stable in no distress. EXAMINATION AT TIME OF DISCHARGE: VITAL SIGNS: Blood pressure 105/67, heart rate of 77, oxygen saturation 96% on room air and temperature 36.2. GENERAL: She is awake, alert, oriented and appropriate. No apparent distress. LABORATORY DATA AT TIME OF DISCHARGE,: White blood cell count of 10.9, hemoglobin of 12.4, hematocrit of 36.5. Sodium of 139, potassium 5.0, chloride 108, bicarb 21, BUN 27, creatinine 1.0, glucose 108, calcium 8.3. DATA ON PLEURAL FLUID: No evidence of malignant cells were identified. Cultures were unremarkable. Pericardial neutrophils 20, lymphocytes 50, total protein 4.2, glucose 85. Consistent with transudative fluid. MEDICATIONS AT TIME OF DISCHARGE: 1. CellCept 1500 mg p.o. b.i.d. 2. Prednisone 60 mg p.o. daily. 3. Hydroxychloroquine 200 mg p.o. b.i.d. 4. Aleve 220 mg p.o. b.i.d. 5. Cyclobenzaprine p.r.n. 6. Xanax 0.25 mg p.r.n. anxiety. PLAN AT TIME OF DISCHARGE: 1. Patient will be discharged home. 2. Patient is scheduled for followup with me on Friday June 09, 2017 at 4 p.m. We will plan for a limited echocardiogram to be performed prior to appointment same day. 3. Of note, I provided her with my personal cell phone number to contact me if she has troubles over the holiday weekend. 4. She will also be seen in followup by Dr. Dwain Marroquin of Rheumatology. 5. She will also be seen in followup with Dr. Gabe Garcia of CT surgery. 30 min spent coordinating discharge /[id number]/MODL MTDD
[2017-05-29] MEDS ORDERED: predniSONE 20 MG TAB PO SCH (09:00)
[2017-06-01 07:49] LABS: C3 COMPLEMENT COMPONENT 59 mg/dL (75 - 175); C4 COMPLEMENT COMPONENT 7 mg/dL (14 - 40)
== END 2017-05-28 16:11 | disposition home or self-care (01) | DRG 546 ==
LOC: EDSTATUS 18:00 → OBSVTOIN 18:11 → F2N 18:45 → F2W 05-27 13:38
PROVIDERS: ADMIT Internal Medicine Cardiovascular Disease; ATTEND Internal Medicine Cardiovascular Disease
PROC: 0W9D3ZX Drainage of Pericardial Cavity, Percutaneous Approach, Diagnostic (ICD-10-PCS; 2017-05-25)
PROC: 0W9B4ZX Drainage of Left Pleural Cavity, Percutaneous Endoscopic Approach, Diagnostic (ICD-10-PCS; principal; 2017-05-27 13:45)
PROC: 0W9D4ZZ Drainage of Pericardial Cavity, Percutaneous Endoscopic Approach (ICD-10-PCS; principal; 2017-05-27 13:45)
DX: M32.12 Pericarditis in systemic lupus erythematosus (principal); I31.4 Cardiac tamponade; M32.13 Lung involvement in systemic lupus erythematosus; D68.61 Antiphospholipid syndrome; G43.909 Migraine, unspecified, not intractable, without status migrainosus
CPT/HCPCS: 86225-90; J0171; J0690; J1100; J1644; J1885; J2001; J2250; J2370; J2405; J2550; J2704; J2920; J3010; Q9967

== ENCOUNTER → 2017-06-08 | Outpatient (CLI) | payer OTHER | LOC: BMCIMAGING 14:22 | PROVIDERS: ATTEND Thoracic Surgery (Cardiothoracic Vascular Surgery) | DX: I31.4 Cardiac tamponade (principal); I51.7 Cardiomegaly ==

== ENCOUNTER → 2017-06-24 | Outpatient (CLI) | payer OTHER | LOC: BMCIMAGING 12:29 | PROVIDERS: ATTEND Internal Medicine Cardiovascular Disease | DX: R50.9 Fever, unspecified (principal); I51.7 Cardiomegaly; Z86.79 Personal history of other diseases of the circulatory system ==